=== PATIENT | female | born 1975 | race Caucasian/White ===

== ENCOUNTER 2017-10-28 21:28 | Inpatient (IN) | payer OTHER ==
[2017-10-29 02:23] VITALS: BP 97/61; PULSE 67; RESP 18; TEMP 98.1
[2017-10-29] MEDS ORDERED: ALUMINUM/MAGNESIUM/SIMETH 30 ML CUP PO PRN (04:15)
[2017-10-29] MEDS ORDERED: MAGNESIUM HYDROXIDE SUSP 30 ML CUP PO PRN (04:15)
[2017-10-29] MEDS ORDERED: ACETAMINOPHEN 325 MG TAB PO PRN (04:15)
[2017-10-29 06:06] VITALS: BP 95/51; PULSE 70; RESP 16; TEMP 98; O2SAT 98
[2017-10-29] MEDS ORDERED: diphenhydrAMINE HCL 50 MG CAP PO PRN (13:45)
[2017-10-29] MEDS ORDERED: SERTRALINE HCL 50 MG TAB PO ONE (13:45)
[2017-10-29] MEDS ORDERED: hydrOXYzine HCL 50 MG TAB PO PRN (13:45)
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
[2017-10-29 18:04] VITALS: BP 106/55; PULSE 82; RESP 16; TEMP 97.4; O2SAT 100
[2017-10-30 06:51] VITALS: BP 90/52; PULSE 73; RESP 16; TEMP 97.4; O2SAT 100
[2017-10-30] MEDS: SERTRALINE HCL 50 MG TAB PO SCH (09:00)
[2017-10-30 18:00] VITALS: BP 101/52; PULSE 73; RESP 17; TEMP 98.1; O2SAT 100
--- NOTE | 2017-10-30 18:04 | HHI.PYPN ---
Subjective Remarks Pt seen and discussed with nursing staff. She remains depressed and withdrawn, but reports that today she has had more energy and was able to do ADLs. She attended unit activities. She is tolerating zoloft without side effects. She denies SI/HI today. Mental Status Examination Appearance: Appropriate Consciousness: Alert Orientation: x4 Motor Activity: Normal gait Speech: Unremarkable Language: Adequate Fund of Knowledge: Adequate Attention and Concentration: Easily Distracted Memory: Unremarkable Mood: Sad Affect: Sad Thought Process & Associations: Intact, Linear Thought Content: Appropriate Hallucination Type: None Delusion Type: None Suicidal Ideation: No (denies today) Suicidal Plan: No Suicidal Intention: No Homicidal Ideation: No Homicidal Plan: No Homicidal Intention: No Insight: Fair Judgment: Impulsive Results Vitals/IOs Vital Signs Date Time Temp Pulse Resp B/P (MAP) Pulse Ox O2 Delivery O2 Flow Rate FiO2 10/30/17 18:00 98.1 73 17 101/52 (68) 100 Assessment & Plan Problem List: (1) Major depressive disorder, recurrent ICD Codes: F33.9 - Major depressive disorder, recurrent, unspecified Assessment & Plan Continue current tx plan. Estimated LOS: days Justification for Cont. Inpt. monitoring for safeyt Problem Qualifiers (1) Major depressive disorder, recurrent: Qualified Codes: F33.2 - Major depressive disorder, recurrent severe without psychotic features Shelbi Barraza MD Oct 30, 2017 18:04
[2017-10-31 05:46] VITALS: BP 90/53; PULSE 64; RESP 16; TEMP 97.5; O2SAT 98
[2017-10-31] MEDS: SERTRALINE HCL 50 MG TAB PO SCH ×2 (09:00→09:01)
--- NOTE | 2017-10-31 12:54 | HHI.PYPN ---
Subjective Remarks Pt seen and discussed with staff. She did ADLs but has stayed in bed all day and been withdrawn. She reports sleeping better last night and denies suicidal thoughts today. She remains depressed with psychomotor retardation and feelings of helplessness. She is compliant with medications and denies side effects. Mental Status Examination Appearance: Appropriate Consciousness: Alert Orientation: x4 Motor Activity: Normal gait Speech: Unremarkable Language: Adequate Fund of Knowledge: Adequate Attention and Concentration: Easily Distracted Memory: Unremarkable Mood: Sad Affect: Sad, Flat Thought Process & Associations: Intact, Linear Thought Content: Appropriate Hallucination Type: None Delusion Type: None Suicidal Ideation: No (denies today) Suicidal Plan: No Suicidal Intention: No Homicidal Ideation: No Homicidal Plan: No Homicidal Intention: No Insight: Fair Judgment: Impulsive Results Vitals/IOs Vital Signs Date Time Temp Pulse Resp B/P (MAP) Pulse Ox O2 Delivery O2 Flow Rate FiO2 10/31/17 05:46 97.5 64 16 90/53 (65) 98 Assessment & Plan Problem List: (1) Major depressive disorder, recurrent ICD Codes: F33.9 - Major depressive disorder, recurrent, unspecified Assessment & Plan Continyue current tx plan. Estimated LOS: days Justification for Cont. Inpt. monitoring for safety, risk of decompensation Problem Qualifiers (1) Major depressive disorder, recurrent: Qualified Codes: F33.2 - Major depressive disorder, recurrent severe without psychotic features Shelbi Barraza MD Oct 31, 2017 12:54
[2017-10-31 19:26] VITALS: BP 96/61; PULSE 82; RESP 16; TEMP 96.6; O2SAT 97
[2017-11-01 06:14] VITALS: BP 95/50; PULSE 65; RESP 16; TEMP 98.2; O2SAT 98
[2017-11-01] MEDS: SERTRALINE HCL 50 MG TAB PO SCH (08:43)
[2017-11-01] MEDS ORDERED: ZOLO50TA PO (10:47)
--- NOTE | 2017-11-01 10:53 | PD.TTN ---
Patient Problems 1. Discharge planning 2. Medication compliance 3. Knowledge deficit 4. Lack of coping skills Progress Toward Goals Provider Present: Dr. Linda Jo Provider Input: Dr. Banks's treatment team met to discuss patient's medication, discharge and treatment plan. Patient is doing well will discharge today. Nurse(s) Input: Patient's nurse reports patient denied suicidal and homicidal ideation. Patient pleasant and cooperative Psychiatric Counselors Present: Candice Lobato [facility] Psych Therapist Input: Patient presents cooperative, pleasant, affect appropriate. Patient's speech is clear organized. Patient is being discharged today and will follow up with [facility] Spec/RT/OT/GREENE Present: RAMONA [facility] Spec/RT/OT/GREENE Input: Patient is selective in attending groups Candice Lobato [facility] Nov 01, 2017 10:53
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
== END 2017-11-01 14:55 | disposition home or self-care (01) | DRG 885 ==
LOC: H260 10-29 01:00
PROVIDERS: ADMIT Student in an Organized Health Care Education/Training Program; ATTEND Student in an Organized Health Care Education/Training Program
DX: F33.2 Major depressive disorder, recurrent severe without psychotic features (principal)